=== PATIENT | female | born 1970 | race Caucasian/White ===

== ENCOUNTER → 2022-01-19 | Outpatient (CLI) | payer OTHER ==
[~2022-01-19] MED LIST: CONTRAST GIVEN. MC PRN; GADOTERATE 7.5 MMOL/15ML VIAL. IVP ONE
--- NOTE | 2022-01-23 16:54 | KCIC ---
INDICATION: Reason: AVASCULAR CYSTIC STRUCTURE / Spl. Instructions: / History: Incidental finding o f a rt groin cystic structure. 18cc [facility] COMPARISON: None. TECHNIQUE: Multiplanar MRI images are obtained of the pelvis with and without intravenous contrast. FINDINGS: Small joint effusion at the bilateral hips. No evidence of malalignment at the bilateral hip joints. At the left adnexa there is a T2 hyperintense lesion identified measuring 29 mm which could be second era to a small cyst. Numerous T2 hyperintense lesions are seen within the lower uterine segment and cervical region measur ing up to 9 mm. This could be secondary to nabothian cyst and subendometrial cyst formation. There is an additional T2 hyperintense structure seen at the anterior aspect of the vaginal region po sterior to the urethra and bladder base measuring 16 mm which could be from an additional small cyst at this location. There are several additional small cysts vaginal region measuring less than a centi meter. Irregular shaped T2 hyperintense lesion is identified There is some mixed signal intensity within the marrow which could be from a mixture of red and yello w marrow. Anterior and medial to the right hip joint inferiorly there is a lobulated T2 hyperintense lesion wit h septations identified abutting the vessels and seen within the musculature of the right upper thigh medially. This lesion measures approximately 51 x 57 x 30 mm. There is some mild discontinuous peripheral enhancement. Degenerative changes the partially visualized lower lumbar spine with osteophyte formation and disc p rotrusion. IMPRESSION: * Lobulated irregular shaped T2 hyperintense lesion is identified within the right upper thigh musc ulature medially anterior and inferior to the right hip joint. This structure involves the muscles wi thin the area and extends into the fat adjacent to the right groin vessels. Possible cause would incl ude lesion such as intramuscular myxoma with another possible cause including a large ganglion cyst e xtending off of the right hip joint. Other higher grade less common causes would include myxoid sarco ma. * T2 hyperintense lesion at the left adnexa which could be from a small cyst. * Numerous nabothian cysts as well as subendometrial and vaginal region cyst. Electronically signed by: Diego Teran MD (01/23/2022 4:52 PM) [id number]
== END ==
LOC: KCIC MRI 12:43
PROVIDERS: ATTEND Nurse Practitioner Family
DX: N83.8 Other noninflammatory disorders of ovary, fallopian tube and broad ligament (principal); N88.8 Other specified noninflammatory disorders of cervix uteri; M25.451 Effusion, right hip; M25.452 Effusion, left hip; M25.851 Other specified joint disorders, right hip; M47.816 Spondylosis without myelopathy or radiculopathy, lumbar region; M25.78 Osteophyte, vertebrae
CPT/HCPCS: 72197; 82565; A9575